=== PATIENT | female | born 1985 | race Caucasian/White ===

== ENCOUNTER 2017-03-21 03:06 | Emergency (ER) | payer OTHER ==
[~2017-03-21] VITALS: Ht 157.5 cm; Wt 72.1 kg
[2017-03-21 04:39] LABS: HEMATOCRIT 42.1 % (36.0-46.0); MCH 30.3 PG (29.0-34.0); MCV 91.7 FL (83-99); MEAN PLAT.VOLUME 10.2 uM^3 (9.5-12.4); PLATELET COUNT 162 K/uL (156-360); RBC DIS.WIDTH-CV 14.6 % (11.8-14.6); RBC DIS.WIDTH-SD 49.6 % (39-53); RED BLOOD COUNT 4.59 M/uL (3.80-5.20); WHITE BLOOD COUNT 10.3 K/uL (4.1-10.2)
[2017-03-21 04:44] LABS: CHLORIDE 107 mEq/L (99-109); POTASSIUM 3.6 mEq/L (3.7-5.4)
[2017-03-21 04:45] LABS: SODIUM 142 mEq/L (136-147)
[2017-03-21 04:46] LABS: GLUCOSE 101 mg/dL (70-99)
[2017-03-21 04:48] LABS: ANION GAP 10 MEQ/L (2-14)
[2017-03-21 04:49] LABS: SERUM ETHYL ALCOHOL 82 mg/dL
[2017-03-21 04:50] LABS: GFR ESTIMATE (CALCULATED) > 59 mL/min/
[2017-03-21 04:51] LABS: UREA NITROGEN (BUN) 14 mg/dL (9-23)
[2017-03-21] MEDS ORDERED: NARCAN4 MG NS (07:39)
[2017-03-21 08:00] VITALS: BP 119/77
== END 2017-03-21 09:17 | disposition home or self-care (01) ==
LOC: EME → EDBD 03:06 → EME 03:06
PROVIDERS: Emergency Medicine
DX: F11.10 Opioid abuse, uncomplicated (principal); T40.1X1A Poisoning by heroin, accidental (unintentional), initial encounter
CPT/HCPCS: 71010; 80048; 85027; 90832; 99281; 99285; G0480; J2310; J2405

== ENCOUNTER 2018-05-12 03:07 | Outpatient (CLI) | payer OTHER ==
[~2018-05-12] VITALS: Ht 157.5 cm; Wt 66.7 kg
[~2018-05-12 03:07] MED LIST: NARCAN4 MG NS
[2018-05-12 03:28] VITALS: BP 102/75
[2018-05-12] MEDS ORDERED: IRON 100 PLUS1 EACH PO (03:36)
[2018-05-12] MEDS ORDERED: PRENATAL TABLE1 EAC3 PO (03:36)
[2018-05-12] MEDS ORDERED: SUBUTEX PO (03:39)
[2018-05-12 06:26] LABS: APPEARANCE CLEAR ((CLEAR)); BILIRUBIN NEGATIVE; BLOOD NEGATIVE; COLOR YELLOW ((YELLOW)); GLUCOSE (STRIP) NEGATIVE; KETONES NEGATIVE; LEUKOCYTES NEGATIVE; NITRITE NEGATIVE; PROTEIN (STRIP) NEGATIVE; SPECIFIC GRAVITY 1.009 (1.000-1.030); UCUL ADDED? NO; UROBILINOGEN 0.2 MG/DL (0.2-1.0)
[2018-05-12 06:50] LABS: AMPHETAMINE NEGATIVE (500 ng/mL); BARBITURATES NEGATIVE (200 ng/mL); BENZODIAZEPINES NEGATIVE (150 ng/mL); BUPRENORPHINE PRESUMPTIVE POSITIVE (10 ng/mL); COCAINE NEGATIVE (150 ng/mL); METHADONE NEGATIVE (200 ng/mL); METHAMPHETAMINE NEGATIVE (500 ng/mL); OPIATES (MORPHINE) NEGATIVE (100 ng/mL); OXYCODONE NEGATIVE (100 ng/mL); PHENCYCLIDINE NEGATIVE (25 ng/mL); PROPOXYPHENE NEGATIVE (300 ng/mL); THC CANNABINOIDS NEGATIVE (50 ng/mL); TRICYCLIC ANTIDEPRESSANTS NEGATIVE (300 ng/mL)
[2018-05-12 20:44] LABS: CANDIDA DNA PROBE NEGATIVE; GARDNERELLA DNA PROBE NEGATIVE; TRICHOMONAS DNA PROBE NEGATIVE
== END 2018-05-12 05:25 | disposition home or self-care (01) ==
LOC: LDRP-OP 03:07 → 2WEST 03:08 → LDRP-OP 07-24 11:20
PROVIDERS: Advanced Practice Midwife
DX: O26.893 Other specified pregnancy related conditions, third trimester (principal); R10.9 Unspecified abdominal pain; O99.323 Drug use complicating pregnancy, third trimester; F11.20 Opioid dependence, uncomplicated; O99.333 Smoking (tobacco) complicating pregnancy, third trimester; O99.343 Other mental disorders complicating pregnancy, third trimester; F41.9 Anxiety disorder, unspecified; F32.9 Major depressive disorder, single episode, unspecified; Z88.6 Allergy status to analgesic agent; Z88.8 Allergy status to other drugs, medicaments and biological substances; Z91.048 Other nonmedicinal substance allergy status; Z3A.33 33 weeks gestation of pregnancy
CPT/HCPCS: 59025; 81003; 87480; 87510; 87660; G0378